=== PATIENT | female | born 1985 | race African-American/Black ===

== ENCOUNTER 2018-10-17 16:00 | Emergency (ER) | payer SELFPAY ==
[~2018-10-17] VITALS: Ht 180.3 cm; Wt 96.0 kg
[2018-10-17] MEDS ORDERED: METHOCARBAMOL 500MG TABLET PO ONE (16:45)
[2018-10-17] MEDS ORDERED: IBUPROFEN 600MG TABLET PO ONE (16:45)
[2018-10-17 17:18] VITALS: BP 128/68
== END 2018-10-17 18:22 | disposition home or self-care (01) ==
LOC: ER 16:00
DX: S43.401A Unspecified sprain of right shoulder joint, initial encounter (principal); V89.2XXA Person injured in unspecified motor-vehicle accident, traffic, initial encounter; Y93.89 Activity, other specified; Y92.89 Other specified places as the place of occurrence of the external cause; Y99.8 Other external cause status
CPT/HCPCS: 73030; 99283